=== PATIENT | male | born 1975 | race Caucasian/White ===

== ENCOUNTER 2017-05-26 04:01 | Emergency (ER) | payer BC ==
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
[2017-05-26] MEDS ORDERED: Diphtheria,Pertussis(Acell),Tetanus Vaccine 0.5 ML Syringe IM ONE (05:15)
[2017-05-26] MEDS ORDERED: Sodium Chloride 0.9% 1,000 ML IV SCH ×2 (05:15)
[2017-05-26] MEDS ORDERED: cefTRIAXone 1 GM in Premix Bag 1 BAG IV ONE (05:15)
[2017-05-26 05:51] LABS: CHLORIDE,CL < 52 mmol/L (98-110)
[2017-05-26 06:01] LABS: SODIUM,NA < 100 mmol/L (136-146)
[2017-05-26] MEDS ORDERED: NS + KCl 20mEq/L 1,000 ML IV SCH (06:15)
[2017-05-26 06:53] VITALS: BP 100/79
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
== END 2017-05-26 06:20 | disposition other institution (70) ==
LOC: MW.ED 04:01
DX: S06.321A Contusion and laceration of left cerebrum with loss of consciousness of 30 minutes or less, initial encounter (principal); F10.120 Alcohol abuse with intoxication, uncomplicated; F17.210 Nicotine dependence, cigarettes, uncomplicated; Y04.2XXA Assault by strike against or bumped into by another person, initial encounter
CPT/HCPCS: 70450; 70486; 71010; 72125; 80053; 84132; 84295; 84484; 85025; 85610; 90471; 90715; 93005; 96361; 96365; 99285; G0480; J0696; J7040; 99284

== ENCOUNTER 2017-05-28 11:38 | Emergency (ER) | payer BC ==
--- NOTE | 2017-05-28 12:12 | CT ---
EXAMINATION: Non contrast CT head. Coronal and sagittal reformats. HISTORY: Pain FINDINGS: No evidence of intra or extra axial hemorrhage, mass, midline shift, hydrocephalus or edema. No hypoattenuation changes in the major vascular territories to suggest acute infarct. No abnormal intracranial calcifications are detected. No evidence of substantial vascular calcificat ions. The orbits and globes are symmetric. Paranasal sinuses and mastoid air cells are well aerated without substantial findings. Pituitary fossa appears unremarkable. Calvarium is intact. No evidence of skull fracture. IMPRESSION: No acute intracranial findings.
[2017-05-28 12:17] LABS: CHLORIDE,CL 106 mmol/L (98-110); SODIUM,NA 139 mmol/L (136-146)
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
[2017-05-28 12:49] VITALS: BP 117/77
== END 2017-05-28 12:44 | disposition home or self-care (01) ==
LOC: MW.ED 11:38
DX: F07.81 Postconcussional syndrome (principal); F17.210 Nicotine dependence, cigarettes, uncomplicated; Z91.048 Other nonmedicinal substance allergy status
CPT/HCPCS: 36415; 70450; 70450-26; 80053; 85025; 85610; 99283; 99284-25

== ENCOUNTER 2017-08-25 16:26 | Emergency (ER) | payer BC ==
[2017-08-25] MEDS ORDERED: Lidocaine 1% 20 ML MDV INJECT ONE (16:43)
[2017-08-25] MEDS ORDERED: Bacitracin Oint 1 GM U/D Packet TOP ONE (16:43)
--- NOTE | 2017-08-25 16:50 | EDM.PDOC ---
ED HPI GENERAL MEDICAL PROBLEM - General Chief Complaint: Laceration Stated Complaint: FELL DOWN Time Seen by Provider: 08/25/17 16:33 Source of Information: Reports: Patient History Limitations: Reports: No Limitations - History of Present Illness INITIAL COMMENTS - FREE TEXT/NARRATIVE: HISTORY AND PHYSICAL: History of present illness: Patient is a 41-year-old male who presents to the emergency room with complaints of a laceration above the left eye after falling. States he was using a hoverboard in the kitchen when he lost his balance resulting in a fall, hitting his face on the counter. He has soft tissue swelling, bruising and a laceration to the left face. Denies any LOC or blurred vision. Review of systems: As per history of present illness and below otherwise all systems reviewed and negative. Past medical history: As per history of present illness and as reviewed below otherwise noncontributory. Surgical history: As per history of present illness and as reviewed below otherwise noncontributory. Social history: No reported history of drug or alcohol abuse. Family history: As per history of present illness and as reviewed below otherwise noncontributory. Physical exam: General: Well-developed and well-nourished 41-year-old male. Alert and oriented. Nontoxic appearing and in no acute distress. HEENT: Atraumatic, normocephalic, pupils reactive, negative for conjunctival pallor or scleral icterus, mucous membranes moist, throat clear, neck supple, nontender, trachea midline. Lungs: Clear to auscultation, breath sounds equal bilaterally, chest nontender. Heart: S1S2, regular, negative for clicks, rubs, or JVD. Abdomen: Soft, nondistended, nontender. Negative for masses or hepatosplenomegaly. Negative for costovertebral tenderness. Pelvis: Stable nontender. Genitourinary: Deferred. Rectal: Deferred. Extremities: Atraumatic, negative for cords or calf pain. Neurovascular unremarkable. Skin: Vertical laceration to mid left eyebrow, measuring 3.5 cm - gapping. Superficial laceration noted to the left cheek bone measuring approximately 3 cm Neuro: Awake, alert, oriented. Cranial nerves II through XII unremarkable. Cerebellum unremarkable. Motor and sensory unremarkable throughout. Exam nonfocal. CT shows a laceration associated with some soft tissue swelling and hematoma noted to the left periorbital region. No skull fracture or intracranial disease or bleeding noted. Keflex will be ordered due to the laceration. Patient will return for suture removal in 10 days. Diagnostics: Head and maxillofacial CT Therapeutics: Lidocaine, bacitracin Procedure: Area was cleansed with chlorhexidine. Area was anesthetized with 1% lidocaine. Explored to base in a bloodless field. 4-0 nylon was used, 5 interrupted sutures were placed. Patient tolerated well. Bacitracin dressing. Small laceration on the left cheek bone was cleansed and Dermabond was used and this is superficial. Impression: Head injury Facial laceration Plan: 1. Please have your stitches removed in 10 days. Monitor for signs of infection. Please do not saturate the area under water (pools, hot tubs, etc...) 2. Tylenol and/or ibuprofen for pain and fever management. Ice to the area. 3. Follow-up with your primary caregiver in the next week. Return to the ED as needed and as discussed. Definitive disposition and diagnosis as appropriate pending reevaluation and review of above. Duration: Hour(s): Location: Reports: Face Left Eye Pain Score (Numeric/FACES): 4 - Related Data Allergies Allergy/AdvReac Type Severity Reaction Status Date / Time adhesive tape Allergy Rash Verified 08/25/17 16:46 Home Meds: Home Meds . [No Known Home Meds] 08/25/17 [History] Past Medical History - Past Health History Medical/Surgical History: Denies Medical/Surgical History Gastrointestinal History: Reports: None - Infectious Disease History Infectious Disease History: Reports: None - Past Surgical History GI Surgical History: Reports: Appendectomy Social & Family History - Family History Family Medical History: Noncontributory - Tobacco Use Smoking Status *Q: Current Every Day Smoker Years of Tobacco use: 20 Packs/Tins Daily: 1 - Caffeine Use Caffeine Use: Reports: Coffee - Recreational Drug Use Recreational Drug Use: No ED ROS GENERAL - Review of Systems Review Of Systems: ROS reveals no pertinent complaints other than HPI. ED EXAM, HEAD INJURY - Physical Exam Exam: See Below (See dictation) Course - Vital Signs Last Recorded V/S: Last Vital Signs Temp 98.9 F 08/25/17 16:41 Pulse 102 H 08/25/17 16:41 Resp 16 08/25/17 16:41 BP 138/72 08/25/17 16:41 Pulse Ox 97 08/25/17 16:41 - Orders/Labs/Meds Orders: Active Orders 24 hr Category Date Time Status Head wo Cont [CT] Stat Exams 08/25/17 16:43 Taken Max Facial Sinus wo Cont [CT] Stat Exams 08/25/17 16:43 Taken Meds: Medications Discontinued Medications Generic Name Dose Route Start Last Admin Trade Name Freq PRN Reason Stop Dose Admin Bacitracin 1 dose 08/25/17 16:43 Bacitracin Oint 1 Gm TOP 08/25/17 16:44 ONETIME ONE Lidocaine HCl 20 ml 08/25/17 16:43 Xylocaine 1% INJECT 08/25/17 16:44 ONETIME ONE Octyl Cyanoacrylate 1 applic 08/25/17 17:23 Dermabond Mini TOP 08/25/17 17:24 ONETIME ONE Departure - Departure Time of Disposition: 17:45 Disposition: Home, Self-Care 01 Clinical Impression: Head injury Qualifiers: Encounter type: initial encounter Qualified Code(s): S09.90XA - Unspecified injury of head, initial encounter Facial laceration Qualifiers: Encounter type: initial encounter Qualified Code(s): S01.81XA - Laceration without foreign body of other part of head, initial encounter - Discharge Information Referrals: PCP,None [Primary Care Provider] - Forms: ED Department Discharge Additional Instructions: My general discharge The following information is given to patients seen in the emergency department who are being discharged to home. This information is to outline your options for follow-up care. We provide all patients seen in our emergency department with a follow-up referral. The need for follow-up, as well as the timing and circumstances, are variable depending upon the specifics of your emergency department visit. If you don't have a primary care physician on staff, we will provide you with a referral. We always advise you to contact your personal physician following an emergency department visit to inform them of the circumstance of the visit and for follow-up with them and/or the need for any referrals to a consulting specialist. The emergency department will also refer you to a specialist when appropriate. This referral assures that you have the opportunity for follow-up care with a specialist. All of these measure are taken in an effort to provide you with optimal care, which includes your follow-up. Under all circumstances we always encourage you to contact your private physician who remains a resource for coordinating your care. When calling for follow-up care, please make the office aware that this follow-up is from your recent emergency room visit. If for any reason you are refused follow-up, please contact the [facility] Emergency Department at and asked to speak to the emergency department charge nurse. [facility] Primary Care [address] [place] [id number] 1. Please have your stitches removed in 10 days. Monitor for signs of infection. Please do not saturate the area under water (pools, hot tubs, etc...) 2. Tylenol and/or ibuprofen for pain and fever management. Ice to the area. 3. Follow-up with your primary caregiver in the next week. Return to the ED as needed and as discussed. - My Orders Last 24 Hours: My Active Orders 08/25/17 16:43 Head wo Cont [CT] Stat Max Facial Sinus wo Cont [CT] Stat - Assessment/Plan Last 24 Hours: My Active Orders 08/25/17 16:43 Head wo Cont [CT] Stat Max Facial Sinus wo Cont [CT] Stat
[2017-08-25] MEDS ORDERED: Octyl 2-Cyanoacrylate 1 APPLIC TUBE TOP ONE (17:23)
[2017-08-25 18:05] VITALS: BP 149/74
--- NOTE | 2017-08-26 16:30 | CT ---
EXAM DATE: 08/25/17 PATIENT'S AGE: 41 Patient: JOSE ELIAS AVILA Facility: [place], [place] Site . Site : 1975 Study: CT Head WO CONT [id number]/28/2018 5:09:06 PM Ordering Physician: Doctor Harrison Final Report: INDICATION: Fell last night. Laceration to left elbow and black ox. TECHNIQUE: CT head without IV contrast. CT face without IV contrast include including axial, coronal and sagittal imaging. COMPARISON: CT head 05/28/[address] face 05/26/2017. FINDINGS: Polyp retention cyst in the right maxillary sinus stable. Laceration in the left supraorbital region with associated soft tissue swelling extending from the supraorbital region into the periorbital region and cheek new. New mild amount of hematoma in this region. No skull or facial fractures. No intracranial hemorrhage, edema or mass effect. Small to mildly prominent lymph nodes in the mid and upper neck likely reactive in nature. Minimal fluid and mucosal thickening in the ethmoidal sinuses. Remainder negative. IMPRESSION: 1. Laceration with associated soft tissue swelling and hematoma in the left supraorbital region with extension of soft tissue swelling and hematoma in the left periorbital region and cheek without skull or facial fracture. 2. No acute intracranial disease. 3. Minimal inflammatory changes in the paranasal sinuses. 4. Mild lymph node prominence in the mid upper neck which should be reactive. Please note that all CT scans at this facility use dose modulation, iterative reconstruction, and/or weight-based dosing when appropriate to reduce radiation dose to as low as reasonably achievable. Dictated by Bay Benitez MD @ Aug 25 2017 5:31PM (Electronic Signature) Report Signed by Proxy. MTDD
--- NOTE | 2017-08-26 16:31 | CT ---
EXAM DATE: 08/25/17 PATIENT'S AGE: 41 Patient: JOSE ELIAS AVILA Facility: [place], [place] Site . Site : 1975 Study: CT Facial WO CONT [id number]/28/2018 5:10:13 PM Ordering Physician: Doctor Harrison Final Report: INDICATION: Fell last night. Laceration to left elbow and black ox. TECHNIQUE: CT head without IV contrast. CT face without IV contrast include including axial, coronal and sagittal imaging. COMPARISON: CT head 05/28/[address] face 05/26/2017. FINDINGS: Polyp retention cyst in the right maxillary sinus stable. Laceration in the left supraorbital region with associated soft tissue swelling extending from the supraorbital region into the periorbital region and cheek new. New mild amount of hematoma in this region. No skull or facial fractures. No intracranial hemorrhage, edema or mass effect. Small to mildly prominent lymph nodes in the mid and upper neck likely reactive in nature. Minimal fluid and mucosal thickening in the ethmoidal sinuses. Remainder negative. IMPRESSION: 1. Laceration with associated soft tissue swelling and hematoma in the left supraorbital region with extension of soft tissue swelling and hematoma in the left periorbital region and cheek without skull or facial fracture. 2. No acute intracranial disease. 3. Minimal inflammatory changes in the paranasal sinuses. 4. Mild lymph node prominence in the mid upper neck which should be reactive. Please note that all CT scans at this facility use dose modulation, iterative reconstruction, and/or weight-based dosing when appropriate to reduce radiation dose to as low as reasonably achievable. Dictated by Bay Benitez MD @ Aug 25 2017 5:32PM (Electronic Signature) Report Signed by Proxy. MTDD
== END 2017-08-25 17:55 | disposition home or self-care (01) ==
LOC: MW.ED 16:26
DX: S01.112A Laceration without foreign body of left eyelid and periocular area, initial encounter (principal); S01.412A Laceration without foreign body of left cheek and temporomandibular area, initial encounter; S09.90XA Unspecified injury of head, initial encounter; F17.210 Nicotine dependence, cigarettes, uncomplicated; W01.118A Fall on same level from slipping, tripping and stumbling with subsequent striking against other sharp object, initial encounter
CPT/HCPCS: 12014; 70450; 70486; 99283; A9270

== ENCOUNTER 2019-07-05 14:28 | Emergency (ER) | payer BC ==
--- NOTE | 2019-07-05 14:50 | EDM.PDOC ---
ED HPI GENERAL MEDICAL PROBLEM - General Chief Complaint: Skin Complaint Stated Complaint: HERNIA Time Seen by Provider: 07/05/19 14:34 Source of Information: Reports: Patient History Limitations: Reports: No Limitations - History of Present Illness INITIAL COMMENTS - FREE TEXT/NARRATIVE: HISTORY AND PHYSICAL: History of present illness: Patient is a 43-year-old male who presents to the emergency room with complaints of a painful firm area noted between his scrotum and rectum. He states he is concerned he may have a hernia as he has not had any experiences with this discomfort in the past. Patient denies any fever, chills, headache, change in vision, syncope or near syncope. Denies any chest pain, back pain, shortness of breath or cough. Denies any abdominal pain, nausea, vomiting, diarrhea, constipation or dysuria. Has not noted any blood in urine or stool. Denies any testicular pain, swelling, or penile drainage/lesions. Patient has been eating and drinking appropriately. Review of systems: As per history of present illness and below otherwise all systems reviewed and negative. Past medical history: As per history of present illness and as reviewed below otherwise noncontributory. Surgical history: As per history of present illness and as reviewed below otherwise noncontributory. Social history: See social history for further information Family history: As per history of present illness and as reviewed below otherwise noncontributory. Physical exam: General: Well-developed and well-nourished 43-year-old male. Alert and oriented. Nontoxic appearing and in no acute distress. HEENT: Atraumatic, normocephalic, pupils equal and reactive bilaterally, negative for conjunctival pallor or scleral icterus, mucous membranes moist, trachea midline. No drooling or trismus noted. No meningeal signs. No hot potato voice noted. Lungs: Clear to auscultation, breath sounds equal bilaterally, chest nontender. Heart: S1S2, regular rate and rhythm without overt murmur Abdomen: Soft, nondistended, nontender. Negative for masses or hepatosplenomegaly. Negative for costovertebral tenderness. Pelvis: Stable nontender. Genitourinary: This was done with consent and a floor sander at the bedside. No pain with palpation of the testes. No erythema, soft tissue swelling or inguinal hernias are appreciated. Positive mesenteric reflex. Skin: Small firm palpable area noted to right gluteal fold, near rectum. Non- indurated and nonfluctuant. Remaining skin is intact, warm, dry. No lesions or rashes noted. Extremities: Atraumatic, moves all extremities per self without difficulty or deficits, negative for cords or calf pain. Neurovascular unremarkable. Neuro: Awake, alert, oriented. Cranial nerves II through XII unremarkable. Cerebellum unremarkable. Motor and sensory unremarkable throughout. Exam nonfocal. Notes: A small soft tissue nodular infiltration of the subcutaneous fat is seen along the medial right gluteal fold measuring 1.5 cm. This information was shared with Dr. George, general surgeon on-call, who states that I can put this patient on Flagyl and have him follow up with her need week. This information was shared with the patient and at bedside. Medication, follow-up and supportive care measures were reviewed and discussed. Voices understanding and is agreeable to plan of care. Denies any further questions or concerns at this time. Diagnostics: CBC, CMP, UA, CT abd/pelvis Therapeutics: None Prescription: Flagyl [place] Impression: Flori-rectal inflammation, r/o abscess Plan: 1. Keep the area clean and dry. May want to add colace to regiment and increase your water. 2. DO NOT drink any alcohol while taking the Flagyl, will cause GI upset. 3. Tylenol and/or ibuprofen as needed for pain management. 4. Please call Dr George's office to set up a follow up appointment. Return to the ED as needed and as discussed. Definitive disposition and diagnosis as appropriate pending reevaluation and review of above. Scrotum Pain Score (Numeric/FACES): 6 - Related Data Allergies Allergy/AdvReac Type Severity Reaction Status Date / Time adhesive tape Allergy Rash Verified 07/05/19 14:33 Home Meds: Home Meds Acetaminophen/HYDROcodone [[place] 325-5 MG] 1 dose PO Q4H #20 tablet 07/05/19 [Rx ] Ranitidine HCl [Heartburn Relief 150] 150 mg PO DAILY 07/05/19 [History] metroNIDAZOLE [Flagyl] 500 mg PO Q12H 5 Days #10 tab 07/05/19 [Rx] Past Medical History - Past Health History Medical/Surgical History: Denies Medical/Surgical History Gastrointestinal History: Reports: None - Infectious Disease History Infectious Disease History: Reports: Chicken Pox - Past Surgical History GI Surgical History: Reports: Appendectomy Musculoskeletal Surgical History: Reports: Other (See Below) Other Musculoskeletal Surgeries/Procedures:: right knee surgery Social & Family History - Family History Family Medical History: Noncontributory - Tobacco Use Smoking Status *Q: Current Every Day Smoker Years of Tobacco use: 20 Packs/Tins Daily: 2 - Caffeine Use Caffeine Use: Reports: Coffee Caffeine Use Comment: 1 cup every day - Recreational Drug Use Recreational Drug Use: No ED ROS GENERAL - Review of Systems Review Of Systems: Comprehensive ROS is negative, except as noted in HPI. ED EXAM, SKIN/RASH Exam: See Below (See dictation) Course - Vital Signs Last Recorded V/S: Last Vital Signs Temp 96.7 F 07/05/19 14:34 Pulse 84 07/05/19 14:34 Resp 18 07/05/19 14:34 BP 148/85 H 07/05/19 14:34 Pulse Ox 99 07/05/19 14:34 - Orders/Labs/Meds Labs: Laboratory Tests 07/05/19 07/05/19 07/05/19 Range/Units 14:47 14:47 14:47 WBC 11.34 H (4.0-11.0) K/uL RBC 5.35 (4.50-5.90) M/uL Hgb 17.3 H (13.0-17.0) g/dL Hct 49.8 (38.0-50.0) % MCV 93.1 (80.0-98.0) fL MCH 32.3 H (27.0-32.0) pg MCHC 34.7 (31.0-37.0) g/dL RDW Std Deviation 45.4 (28.0-62.0) fl RDW Coeff of Zhou 13 (11.0-15.0) % Plt Count 221 (150-400) K/uL MPV 11.40 (7.40-12.00) fL Neut % (Auto) 60.6 (48.0-80.0) % Lymph % (Auto) 29.1 (16.0-40.0) % Gila % (Auto) 8.0 (0.0-15.0) % Eos % (Auto) 1.9 (0.0-7.0) % Baso % (Auto) 0.4 (0.0-1.5) % Neut # (Auto) 6.9 H (1.4-5.7) K/uL Lymph # (Auto) 3.3 H (0.6-2.4) K/uL Gila # (Auto) 0.9 H (0.0-0.8) K/uL Eos # (Auto) 0.2 (0.0-0.7) K/uL Baso # (Auto) 0.1 (0.0-0.1) K/uL Nucleated RBC % 0.0 /100WBC Nucleated RBCs # 0 K/uL Sodium 142 (136-148) mmol/L Potassium 4.3 (3.5-5.1) mmol/L Chloride 105 (98-107) mmol/L Carbon Dioxide 29.2 (21.0-32.0) mmol/L BUN 14 (7.0-18.0) mg/dL Creatinine 1.0 (0.8-1.3) mg/dL Est Cr Clr Drug Dosing 98.35 mL/min Estimated GFR (MDRD) > 60.0 ml/min Glucose 87 (74-106) mg/dL Calcium 8.7 (8.5-10.1) mg/dL Total Bilirubin 0.4 (0.2-1.0) mg/dL AST 25 (15-37) IU/L ALT 40 (14-63) IU/L Alkaline Phosphatase 107 (46-116) U/L Total Protein 7.4 (6.4-8.2) g/dL Albumin 3.9 (3.4-5.0) g/dL Globulin 3.5 (2.6-4.0) g/dL Albumin/Globulin Ratio 1.1 (0.9-1.6) Urine Color YELLOW Urine Appearance CLEAR Urine pH 7.0 (5.0-8.0) Ur Specific [place] 1.020 (1.001-1.035) Urine Protein NEGATIVE (NEGATIVE) mg/dL Urine Glucose (UA) NEGATIVE (NEGATIVE) mg/dL Urine Ketones NEGATIVE (NEGATIVE) mg/dL Urine Occult Blood NEGATIVE (NEGATIVE) Urine Nitrite NEGATIVE (NEGATIVE) Urine Bilirubin NEGATIVE (NEGATIVE) Urine Urobilinogen 0.2 (<2.0) EU/dL Ur Leukocyte Esterase NEGATIVE (NEGATIVE) Meds: Medications Discontinued Medications Generic Name Dose Route Start Last Admin Trade Name Freq PRN Reason Stop Dose Admin Iopamidol 100 ml 07/05/19 15:50 07/05/19 15:50 Isovue-370 (76%) IVPUSH 07/05/19 15:51 100 ml ONETIME STA Administration Departure - Departure Time of Disposition: 16:19 Disposition: Home, Self-Care 01 Clinical Impression: Perirectal inflammation - Discharge Information Prescriptions: Acetaminophen/HYDROcodone [[place] 325-5 MG] 1 dose PO Q4H #20 tablet metroNIDAZOLE [Flagyl] 500 mg PO Q12H 5 Days #10 tab Instructions: Perirectal Abscess Referrals: PCP,None [Primary Care Provider] - Forms: ED Department Discharge Additional Instructions: The following information is given to patients seen in the emergency department who are being discharged to home. This information is to outline your options for follow-up care. We provide all patients seen in our emergency department with a follow-up referral. The need for follow-up, as well as the timing and circumstances, are variable depending upon the specifics of your emergency department visit. If you don't have a primary care physician on staff, we will provide you with a referral. We always advise you to contact your personal physician following an emergency department visit to inform them of the circumstance of the visit and for follow-up with them and/or the need for any referrals to a consulting specialist. The emergency department will also refer you to a specialist when appropriate. This referral assures that you have the opportunity for follow-up care with a specialist. All of these measure are taken in an effort to provide you with optimal care, which includes your follow-up. Under all circumstances we always encourage you to contact your private physician who remains a resource for coordinating your care. When calling for follow-up care, please make the office aware that this follow-up is from your recent emergency room visit. If for any reason you are refused follow-up, please contact the [facility] Emergency Department at and asked to speak to the emergency department charge nurse. [facility] Primary Care: General Surgery [address] [place] [address] [id number] 1. Keep the area clean and dry. May want to add colace to regiment and increase your water. 2. DO NOT drink any alcohol while taking the Flagyl, will cause GI upset. 3. Tylenol and/or ibuprofen as needed for pain management. 4. Please call Dr George's office to set up a follow up appointment. Return to the ED as needed and as discussed.
[2019-07-05 15:17] LABS: BLOOD UREA NITROGEN,BUN 14 mg/dL (7.0-18.0); CARBON DIOXIDE,CO2 29.2 mmol/L (21.0-32.0); CHLORIDE,CL 105 mmol/L (98-107); GLUCOSE RANDOM 87 mg/dL (74-106); POTASSIUM,K 4.3 mmol/L (3.5-5.1); SODIUM,NA 142 mmol/L (136-148)
[2019-07-05] MEDS ORDERED: Iopamidol 755 Mg/ML 100 ML Bottle IVPUSH STA (15:50)
--- NOTE | 2019-07-05 16:09 | CT ---
INDICATION: Pelvic pain for 2 days TECHNIQUE: CT pelvis with i.v. contrast. Coronal and sagittal reformats were obtained. CONTRAST: 100 mL Isovue 370 COMPARISON: None FINDINGS: Bone: No acute fractures or aggressive bone lesions are identified. 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 Joint: The hip joint is unremarkable. No significant hip effusion is seen. The visualized sacroiliac joints are unremarkable in appearance. The pubic symphysis is normal in appearance. Soft tissue: A small soft tissue nodular infiltration of the subcutaneous fat is seen along the medial right gluteal fold measuring 1.5 cm. The appendix and visualized bowel are unremarkable in appearance. IMPRESSION: 1. A small soft tissue nodular infiltration of the subcutaneous fat is seen along the medial right gluteal fold measuring 1.5 cm. This may represent a small focus of inflammation. No definite involvement of the issue and fossa seen. Dictated by Ish Woodruff MD @ 07/05/2019 4:04:02 PM Please note that all CT scans at this facility use dose modulation, iterative reconstruction, and/or weight-based dosing when appropriate to reduce radiation dose to as low as reasonably achievable. Dictated by: Ish Woodruff MD @ 07/05/2019 16:08:47 (Electronically Signed)
[2019-07-05 16:29] VITALS: BP 133/87; PULSE 81
== END 2019-07-05 16:25 | disposition home or self-care (01) ==
LOC: MW.ED 14:28
DX: K62.89 Other specified diseases of anus and rectum (principal); F17.210 Nicotine dependence, cigarettes, uncomplicated; Z79.899 Other long term (current) drug therapy; Z91.09 Other allergy status, other than to drugs and biological substances
CPT/HCPCS: 72193; 80053; 81003; 85025; 99284; Q9967

== ENCOUNTER 2019-07-13 10:56 | Day surgery (SDC) | payer BC ==
[~2019-07-13 10:56] MED LIST: Lactated Ringers 1,000 ML IV SCH; Sodium Chloride 0.9% 10 ML SDV IV PRN; Sodium Chloride 0.9% 10 ML Syringe FLUSH PRN; Sodium Chloride 0.9% 2.5 ML Syringe FLUSH PRN; cefOXitin 2 GM in Premix Bag 1 BAG IV ONE
--- NOTE | 2019-07-13 11:48 | PCM.PREANE ---
Preanesthetic Assessment - Anesthesia/Transfusion/Family Hx Anesthesia History: Prior Anesthesia Without Reaction Family History of Anesthesia Reaction: No Transfusion History: No Prior Transfusion(s) Intubation History: Unknown - Review of Systems General: No Symptoms Pulmonary: No Symptoms Cardiovascular: No Symptoms Gastrointestinal: No Symptoms Neurological: No Symptoms Other: Reports: None - Physical Assessment Vital Signs: Last Vital Signs Temp 36.5 C 07/13/19 11:41 Pulse 72 07/13/19 11:41 Resp 14 07/13/19 11:41 BP 113/66 07/13/19 11:41 Pulse Ox 99 07/13/19 11:41 Height: 5 ft 10 in Weight: 97.069 kg ASA Class: 2 Mental Status: Alert & Oriented x3 Airway Class: Mallampati = 2 Dentition: Reports: Normal Dentition (front upper incisor chipped) Thyro-Mental Finger Breadths: 3 Mouth Opening Finger Breadths: 3 ROM/Head Extension: Limited/Partial Lungs: Clear to Auscultation, Normal Respiratory Effort Cardiovascular: Regular Rate, Regular Rhythm - Allergies Allergies/Adverse Reactions: Allergies Allergy/AdvReac Type Severity Reaction Status Date / Time adhesive tape Allergy Rash Verified 07/10/19 09:58 - Blood Blood Available: No - Anesthesia Plan Pre-Op Medication Ordered: None - Acknowledgements Anesthesia Type Planned: General Anesthesia Pt an Appropriate Candidate for the Planned Anesthesia: Yes Alternatives and Risks of Anesthesia Discussed w Pt/Guardian: Yes Pt/Guardian Understands and Agrees with Anesthesia Plan: Yes PreAnesthesia Questionnaire - Past Health History Medical/Surgical History: Denies Medical/Surgical History HEENT History: Reports: None Gastrointestinal History: Reports: GERD, Other (See Below) (perirectal abscess) Musculoskeletal History: Reports: Back Pain, Chronic Endocrine/Metabolic History: Reports: Obesity/BMI 30+ - Infectious Disease History Infectious Disease History: Reports: Chicken Pox - Past Surgical History Head Surgeries/Procedures: Reports: None HEENT Surgical History: Reports: Tonsillectomy GI Surgical History: Reports: Appendectomy Musculoskeletal Surgical History: Reports: Arthroscopic Knee Other Musculoskeletal Surgeries/Procedures:: hx of right ACL repair - SUBSTANCE USE Smoking Status *Q: Current Every Day Smoker (2ppd) Tobacco Use Within Last Twelve Months: Cigarettes Recreational Drug Type: Reports: Other (see below) (h/o i.v. drug abuse- in remission) - HOME MEDS Home Medications: Home Meds Acetaminophen/HYDROcodone [[place] 325-5 MG] 1 dose PO Q4H #20 tablet 07/05/19 [Rx ] Ranitidine HCl [Heartburn Relief 150] 150 mg PO DAILY 07/05/19 [History] metroNIDAZOLE [Flagyl] 500 mg PO Q12H 5 Days #10 tab 07/05/19 [Rx] - CURRENT (IN HOUSE) MEDS Current Meds: Current Medications Lactated Ringer's (Ringers, Lactated) 1,000 mls @ 125 mls/hr IV ASDIRECTED GLADYS Sodium Chloride (Saline Flush) 10 ml FLUSH ASDIRECTED PRN PRN Reason: Keep Vein Open Sodium Chloride (Saline Flush) 2.5 ml FLUSH ASDIRECTED PRN PRN Reason: Keep Vein Open Sodium Chloride (Normal Saline) 10 ml IV ASDIRECTED PRN PRN Reason: IV Use Discontinued Medications Cefoxitin Sodium 2 gm/ Premix 50 mls @ 100 mls/hr IV ONETIME ONE Stop: 07/13/19 09:51
[2019-07-13] MEDS ORDERED: Propofol 200 MG/20 ML SDV ONE (12:23)
[2019-07-13] MEDS ORDERED: Midazolam 1 MG/ML 2 ML SDV ONE (12:24)
[2019-07-13] MEDS ORDERED: fentaNYL 250 MCG/5 ML SDV ONE (12:24)
[2019-07-13] MEDS ORDERED: Rocuronium 100 MG/10 ML Syringe ONE (12:26)
[2019-07-13] MEDS ORDERED: Ondansetron 4 MG/2 ML SDV ONE (12:27)
[2019-07-13] MEDS ORDERED: Dexamethasone 4 MG/ML 5 ML MDV ONE (12:27)
[2019-07-13] MEDS ORDERED: Sodium Chloride 0.9% 20 ML ONE (12:28)
[2019-07-13] MEDS ORDERED: cefOXitin 1 GM Vial ONE (12:28)
[2019-07-13] MEDS ORDERED: Bupivacaine 0.5% 30 ML SDV ONE (12:31)
[2019-07-13] MEDS ORDERED: Phenylephrine/Normal Saline 100 MCG/ML 10 ML Syringe ONE (13:06)
[2019-07-13] MEDS ORDERED: ePHEDrine 50 MG/ML SDV ONE (13:06)
[2019-07-13] MEDS ORDERED: Glycopyrrolate 0.2 MG/ML SDV ONE (13:10)
[2019-07-13] MEDS ORDERED: HYDROmorphone 2 MG/ML Syringe ONE (13:17)
--- NOTE | 2019-07-13 13:37 | PCM.OPNOTE ---
- General Post-Op/Procedure Note Date of Surgery/Procedure: 07/13/19 Operative Procedure(s): Incision and drainage of perianal abscess Findings: 1 x 1 x 1 cm anterior perianal abscess Pre Op Diagnosis: Perianal abscess Post-Op Diagnosis: same Anesthesia Technique: General LMA Primary Surgeon: Jael George Fluid Replacement, Intraop: 800 EBL in mLs: 2 Condition: Good
--- NOTE | 2019-07-13 14:00 | PCM.POSTAN ---
POST ANESTHESIA ASSESSMENT - MENTAL STATUS Mental Status: Alert, Oriented - VITAL SIGNS Vital Signs: Last Vital Signs Temp 36.1 C 07/13/19 13:35 Pulse 100 07/13/19 13:54 Resp 13 07/13/19 13:54 BP 123/72 07/13/19 13:54 Pulse Ox 95 07/13/19 13:54 - RESPIRATORY Respiratory Status: Respiratory Rate WNL, Airway Patent, O2 Saturation Stable - CARDIOVASCULAR CV Status: Pulse Rate WNL, Blood Pressure Stable - GASTROINTESTINAL GI Status: No Symptoms - PAIN Pain Score: 0 - POST OP HYDRATION Hydration Status: Adequate & Stable - OBSERVATIONS Free Text/Narrative:: no anesthesia problems
--- NOTE | 2019-07-13 14:24 | PCM48HPAN ---
Post Anesthesia Note - EVALUATION WITHIN 48HRS OF ANESTHETIC Vital Signs in Normal Range: Yes Patient Participated in Evaluation: Yes Respiratory Function Stable: Yes Airway Patent: Yes Cardiovascular Function Stable: Yes Hydration Status Stable: Yes Pain Control Satisfactory: Yes Nausea and Vomiting Control Satisfactory: Yes Mental Status Recovered: Yes Vital Signs: Last Vital Signs Temp 36.1 C 07/13/19 13:35 Pulse 91 07/13/19 13:59 Resp 14 07/13/19 13:59 BP 119/72 07/13/19 13:59 Pulse Ox 95 07/13/19 13:59 - COMMENTS/OBSERVATIONS Free Text/Narrative:: No anesthesia problems
[2019-07-13 14:53] VITALS: BP 128/72; PULSE 78
--- NOTE | 2019-07-13 14:55 | OR ---
SURGEON: CARLIE BRICEÑO MD DATE OF PROCEDURE: 07/13/2019 PREOPERATIVE DIAGNOSIS: Perianal abscess. POSTOPERATIVE DIAGNOSIS: Perianal abscess. PROCEDURES PERFORMED: Exam under anesthesia, incision and drainage of perianal abscess. ANESTHESIA: General LMA. FLUIDS: 800 mL of crystalloid. ESTIMATED BLOOD LOSS: 2 mL. FINDINGS: 1 x 1 x 1 cm right anterior perianal abscess. No connection to the anal canal. COMPLICATIONS: None. INDICATIONS: The patient is a 43-year-old male who presents with perianal pain and swelling. He was seen in the emergency room and started on antibiotics. The erythema and swelling improved. However, the patient was left with a fluctuant area on the right anterior anoderm. I explained the need for drainage of this and an exam under anesthesia to ensure that this was not a perianal fistula. The patient and I discussed the procedure, expected perioperative course, and risks including bleeding, infection, or damage to surrounding structures. He verbalized understanding and wishes to proceed. PROCEDURE IN DETAIL: The patient was brought into the OR and placed on the OR cart in supine position. A time-out was completed verifying the patient's name, age, date of , allergies, and procedure to be performed. General LMA anesthesia was induced. The patient was then turned into a left lateral decubitus position, taking care to appropriately pad and secure the patient. The buttocks and anoderm were then prepped and draped in the usual standard fashion. I started the case by performing a digital rectal exam. This exam was within normal limits. I then turned my attention to the anterior anoderm. Again, I noted a small fluctuant area located anteriorly into the right side. The area overlying this was anesthetized with 0.5% Marcaine plain. A 15 blade was then used to make a 1-cm cruciate incision over the area of maximum fluctuance. No significant drainage was noted. I used a hemostat and found an abscess cavity underneath this area. It was 1 cm in depth below my incision area. Using a fistula probe, I explored the wound and could not see any connection to the anal canal. A bivalve proctoscope was inserted in the rectum, and I inspected the anal canal area. This all appeared normal. Hydrogen peroxide solution was injected into the abscess cavity, and I saw no expression of hydrogen peroxide into the anal canal anteriorly. This confirmed for me that the abscess did not form a perianal fistula. The bivalve proctoscope was removed. I excised the edges of my cruciate incision using cautery. I measured the final wound. It measured 1 x 1 x 1 cm in size. It was irrigated with normal saline until it ran clear. The wound was then packed with quarter-inch packing strip. 4x4 fluffs were placed over the top, and these were secured in place with mesh underwear. The patient was then rolled into a supine position and woken. The LMA device was removed, and he was taken to the PACU in stable condition. All counts were complete and correct at the end of the case. HERIBERTO / NAKUL /[id number]
== END 2019-07-13 14:47 | disposition home or self-care (01) ==
LOC: MW.SDS 10:56
PROVIDERS: ATTEND Surgery
DX: K61.0 Anal abscess (principal); F17.210 Nicotine dependence, cigarettes, uncomplicated; Z88.8 Allergy status to other drugs, medicaments and biological substances; Z79.891 Long term (current) use of opiate analgesic; Z91.048 Other nonmedicinal substance allergy status
CPT/HCPCS: 46050; J0330; J0694; J1100; J2001; J2250; J2370; J2405; J2704; J3010; J3490; J7120; 00902; J1170

== ENCOUNTER 2019-12-04 16:23 | Emergency (ER) | payer BC ==
--- NOTE | 2019-12-04 16:45 | EDM.PDOC ---
ED HPI GENERAL MEDICAL PROBLEM - General Chief Complaint: Skin Complaint Stated Complaint: HEALTH ISSUES Time Seen by Provider: 12/04/19 16:45 Source of Information: Reports: Patient History Limitations: Reports: No Limitations - History of Present Illness INITIAL COMMENTS - FREE TEXT/NARRATIVE: HISTORY AND PHYSICAL: History of present illness: Patient is a 44-year-old male presents to the ED with complaint of abscess. Patient reports a history of an abscess in his left gluteal area requiring surgical drainage approximately 6 months ago. He states he notice a small spot on the right glute near his anus about 1 week ago. He states it has gotten worse with over the past week. He saw Dr. Martínez in the clinic today and started on cipro. Patient states Dr. George's office then called him this afternoon and advised him to go to the ED to have it checked out. Review of systems: As per history of present illness and below otherwise all systems reviewed and negative. Past medical history: As per history of present illness and as reviewed below otherwise noncontributory. Surgical history: As per history of present illness and as reviewed below otherwise noncontributory. Social history: No reported history of drug or alcohol abuse. Family history: As per history of present illness and as reviewed below otherwise noncontributory. Physical exam: General: Patient sitting comfortably in no acute distress and nontoxic appearing HEENT: Atraumatic, normocephalic, pupils reactive, negative for conjunctival pallor or scleral icterus, mucous membranes moist, throat clear, neck supple, nontender, trachea midline. No meningeal signs. Lungs: Clear to auscultation, breath sounds equal bilaterally, chest nontender. Heart: S1S2, regular, negative for clicks, rubs, or overt murmur. Abdomen: Soft, nondistended, nontender. Negative for masses or hepatosplenomegaly. Negative for costovertebral tenderness. No rigidity, rebound , guarding. Pelvis: Stable nontender. Genitourinary: Deferred. Rectal: There is a 2cm abscess just adjacent to the rectum on the right side. Patient has pain with digital rectal exam on the adjacent rectal wall. Extremities: Atraumatic, negative for cords or calf pain. Neurovascular unremarkable. Neuro: Awake, alert, oriented. Cranial nerves II through XII unremarkable. Cerebellum unremarkable. Motor and sensory unremarkable throughout. Exam nonfocal. Notes: Dr. Sutton in ED evaluating another patient. I did ask him to take a look at the patient. He does not believe drainage is necessary at this time and patient is requesting to wait until he sees Dr. George for evaluation and possible drainage on Saturday. Diagnostics: none Therapeutics: none Prescriptions: Ultram Impression: Perianal abscess Plan: Continue antibiotic as prescribed You may take ultram as needed for severe pain Follow up with Dr. George on Saturday Return to ED as needed as discussed Definitive disposition and diagnosis as appropriate pending reevaluation and review of above. right inner gluteal Pain Score (Numeric/FACES): 6 - Related Data Allergies Allergy/AdvReac Type Severity Reaction Status Date / Time adhesive tape Allergy Rash Verified 12/04/19 16:42 Home Meds: Home Meds Ciprofloxacin [Ciprofloxacin HCl] 500 mg PO BID 12/04/19 [History] traMADol [Ultram] 50 mg PO Q6H PRN #15 tab 12/04/19 [Rx] Past Medical History - Past Health History Medical/Surgical History: Denies Medical/Surgical History HEENT History: Reports: None Gastrointestinal History: Reports: GERD, Other (See Below) (perirectal abscess) Musculoskeletal History: Reports: Back Pain, Chronic Endocrine/Metabolic History: Reports: Obesity/BMI 30+ - Infectious Disease History Infectious Disease History: Reports: Chicken Pox - Past Surgical History Head Surgeries/Procedures: Reports: None HEENT Surgical History: Reports: Tonsillectomy GI Surgical History: Reports: Appendectomy Musculoskeletal Surgical History: Reports: Arthroscopic Knee Other Musculoskeletal Surgeries/Procedures:: hx of right ACL repair Social & Family History - Family History Family Medical History: Noncontributory - Caffeine Use Caffeine Use: Reports: Coffee Caffeine Use Comment: 1 cup every day ED ROS GENERAL - Review of Systems Review Of Systems: Comprehensive ROS is negative, except as noted in HPI. ED EXAM, SKIN/RASH Exam: See Below (see dictation) Course - Vital Signs Last Recorded V/S: Last Vital Signs Temp 97 F 12/04/19 16:40 Pulse 88 12/04/19 16:40 Resp 18 12/04/19 16:40 BP 127/90 12/04/19 16:40 Pulse Ox 98 12/04/19 16:40 Departure - Departure Time of Disposition: 17:49 Disposition: Home, Self-Care 01 Condition: Good Clinical Impression: Perianal abscess - Discharge Information Prescriptions: traMADol [Ultram] 50 mg PO Q6H PRN #15 tab PRN Reason: Pain (Severe 7-10) Instructions: Skin Abscess, [id number] Referrals: PCP,None [Primary Care Provider] - Forms: ED Department Discharge Additional Instructions: The following information is given to patients seen in the emergency department who are being discharged to home. This information is to outline your options for follow-up care. We provide all patients seen in our emergency department with a follow-up referral. The need for follow-up, as well as the timing and circumstances, are variable depending upon the specifics of your emergency department visit. If you don't have a primary care physician on staff, we will provide you with a referral. We always advise you to contact your personal physician following an emergency department visit to inform them of the circumstance of the visit and for follow-up with them and/or the need for any referrals to a consulting specialist. The emergency department will also refer you to a specialist when appropriate. This referral assures that you have the opportunity for follow-up care with a specialist. All of these measure are taken in an effort to provide you with optimal care, which includes your follow-up. Under all circumstances we always encourage you to contact your private physician who remains a resource for coordinating your care. When calling for follow-up care, please make the office aware that this follow-up is from your recent emergency room visit. If for any reason you are refused follow-up, please contact the [facility] Emergency Department at and asked to speak to the emergency department charge nurse. [facility] [address] [place] [address] [id number] [address] [address] Continue antibiotic as prescribed You may take ultram as needed for severe pain Follow up with Dr. George on Saturday Return to ED as needed as discussed Sepsis Event Note - Focused Exam Vital Signs: Vital Signs Temp Pulse Resp BP Pulse Ox 12/04/19 16:40 97 F 88 18 127/90 98 Date Exam was Performed: 12/04/19 Time Exam was Performed: 17:58
[2019-12-04 16:46] VITALS: BP 127/90; PULSE 88
--- NOTE | 2019-12-04 18:00 | PCM.SN.2 ---
- Free Text/Narrative Note: pt seen, chart reviewed; early stage of perirectal abscess, continue po abx, switch to ultram, keep appointment with Dr. cassidy on coming Saturday; [id number]
--- NOTE | 2019-12-05 11:29 | CONS ---
DATE OF CONSULTATION: 12/04/2019 DATE OF : 1975 PRIMARY CARE PHYSICIAN: None PCP REASON FOR CONSULTATION: Consult from Ms. Lynn Stubbs. Consulting question is perirectal abscess. HISTORY OF PRESENT ILLNESS: The patient is a 44-year-old gentleman and has a history of a perirectal abscess, drained by Dr. Geroge about 5 months ago, and now the patient has the same feeling that a similar thing is happening on the opposite side. Currently, the patient denied fever, chills, or diarrhea. Denied drainage. The patient is worried that there is another recurrence on a different area. PAST MEDICAL HISTORY: Significant for no diabetes, PR, CVA, hypertension. PAST SURGICAL HISTORY: As alluded to have perirectal abscess drainage. ALLERGIES: Please refer to nursing for details. MEDICATION: Please refer to nursing for details. FAMILY HISTORY: Noncontributory. SOCIAL HISTORY: Denies alcohol drinking. PHYSICAL EXAMINATION: GENERAL: A very pleasant gentleman, pacing in the room and sitting comfortably in the stretcher, in no acute distress. HEENT: Normocephalic and atraumatic. Sclerae anicteric. LUNGS: Clear to auscultation. HEART: Regular rate and rhythm. ABDOMEN: Soft, nondistended. No pulsating tender midline abdominal structure. No surgical scar. RECTAL: On perineum inspection, did not do a perirectal examination. Well- healed surgical scar is on the right perineum, the right buttock on the medial aspect, about 3 cm from the anal opening. A very minimal fluctuance, but tender to palpation is right on the medial aspect of the left buttock. It is about 4 cm from the anal opening. No erythema. No cellulitis. No drainage. Skin is completely intact, and the fluctuance is only minimal. IMPRESSION: May be another perirectal abscess happening. Discussed with the patient it can be drained at the bedside, but the patient is more interested to keep his appointment to see Dr. George 2 days later. This patient preferred to have a change of the pain medication. He thought the pain medication made him throw up. So at this time of situation, I think even though there is a perirectal abscess, it is not ripe. Agree with treating with antibiotic, pain medication, and keep the same appointment with Dr. George. Sometimes antibiotic may be able to take care of the situation. The patient will prefer to have nothing done and keep his appointment. We will give the patient Ultram, which is slightly different than the hydrocodone that is making his stomach sick, and continue his Cipro and keep his appointment with Dr. George. MAKENZIE / NAKUL /[id number]
== END 2019-12-04 18:00 | disposition home or self-care (01) ==
LOC: MW.ED 16:23
DX: K61.0 Anal abscess (principal); E66.9 Obesity, unspecified; Z68.29 Body mass index [BMI] 29.0-29.9, adult; Z91.048 Other nonmedicinal substance allergy status
CPT/HCPCS: 99282; 99283

== ENCOUNTER 2020-11-07 06:15 | Emergency (ER) | payer BC ==
--- NOTE | 2020-11-07 07:27 | EDM.PDOC ---
ED HPI GENERAL MEDICAL PROBLEM - General Chief Complaint: Genitourinary Problem Stated Complaint: POSSIBLE KIDNEY Time Seen by Provider: 11/07/20 07:13 Source of Information: Reports: Patient History Limitations: Reports: No Limitations - History of Present Illness INITIAL COMMENTS - FREE TEXT/NARRATIVE: Pt is a 45-year-old male who presents today for left-sided flank pain. Patient states the pain started about 2 weeks ago and wax and wane and was not associated with any events. Patient dolomite been a pulled muscle and try to stretch out a little bit without success. Patient's pain is still present today about a 4 out of 10. Pain does not radiate. Patient concerned he could have UTI or any kidney injury. Patient had a nausea vomiting bloody urine for the symptoms. L flank Pain Score (Numeric/FACES): 6 - Related Data Allergies Allergy/AdvReac Type Severity Reaction Status Date / Time adhesive tape Allergy Rash Verified 11/07/20 06:28 Home Meds: Home Meds Ciprofloxacin [Ciprofloxacin HCl] 500 mg PO BID 12/04/19 [History] traMADol [Ultram] 50 mg PO Q6H PRN #15 tab 12/04/19 [Rx] Past Medical History - Past Health History Medical/Surgical History: Denies Medical/Surgical History HEENT History: Reports: None Cardiovascular History: Reports: None Respiratory History: Reports: None Gastrointestinal History: Reports: GERD, Other (See Below) Genitourinary History: Reports: None Musculoskeletal History: Reports: Back Pain, Chronic Neurological History: Reports: None Psychiatric History: Reports: None Endocrine/Metabolic History: Reports: Obesity/BMI 30+ Insulin Pump Model and Chemical Cell Changer: None Hematologic History: Reports: None Immunologic History: Reports: None Oncologic (Cancer) History: Reports: None Dermatologic History: Reports: None - Infectious Disease History Infectious Disease History: Reports: Chicken Pox - Past Surgical History Head Surgeries/Procedures: Reports: None HEENT Surgical History: Reports: Tonsillectomy GI Surgical History: Reports: Appendectomy Musculoskeletal Surgical History: Reports: Arthroscopic Knee Other Musculoskeletal Surgeries/Procedures:: hx of right ACL repair Social & Family History - Family History Family Medical History: No Pertinent Family History - Caffeine Use Caffeine Use: Reports: Coffee Caffeine Use Comment: 1 cup every day - Recreational Drug Use Recreational Drug Use: No ED ROS GENERAL - Review of Systems Review Of Systems: See Below Constitutional: Reports: No Symptoms HEENT: Reports: No Symptoms Respiratory: Reports: No Symptoms Cardiovascular: Reports: No Symptoms Endocrine: Reports: No Symptoms GI/Abdominal: Reports: No Symptoms : Reports: No Symptoms Musculoskeletal: Reports: Back Pain Skin: Reports: No Symptoms Neurological: Reports: No Symptoms Psychiatric: Reports: No Symptoms Hematologic/Lymphatic: Reports: No Symptoms Immunologic: Reports: No Symptoms ED EXAM,LOWER BACK PAIN/INJURY - Physical Exam Exam: See Below Exam Limited By: No Limitations General Appearance: Alert, WD/WN, No Apparent Distress Eye Exam: Bilateral Eye: EOMI, PERRL Respiratory/Chest: No Respiratory Distress, Lungs Clear, Normal Breath Sounds Cardiovascular: Normal Peripheral Pulses, Regular Rate, Rhythm GI/Abdominal: Normal Bowel Sounds, Soft, Non-Tender Extremities: Normal Range of Motion Neurological: Alert, Normal Mood/Affect, CN II-XII Intact, Oriented x 3 Course - Vital Signs Last Recorded V/S: Last Vital Signs Temp 98.1 F 11/07/20 06:29 Pulse 70 11/07/20 06:29 Resp 18 11/07/20 06:29 BP 128/80 11/07/20 06:29 Pulse Ox 97 11/07/20 06:29 - Orders/Labs/Meds Labs: Laboratory Tests 11/07/20 11/07/20 11/07/20 Range/Units 06:16 07:29 07:29 WBC 8.11 (4.0-11.0) K/uL RBC 5.26 (4.50-5.90) M/uL Hgb 16.5 (13.0-17.0) g/dL Hct 48.4 (38.0-50.0) % MCV 92.0 (80.0-98.0) fL MCH 31.4 (27.0-32.0) pg MCHC 34.1 (31.0-37.0) g/dL RDW Std Deviation 43.9 (28.0-62.0) fl RDW Coeff of Zhou 13 (11.0-15.0) % Plt Count 210 (150-400) K/uL MPV 11.20 (7.40-12.00) fL Neut % (Auto) 57.0 (48.0-80.0) % Lymph % (Auto) 32.8 (16.0-40.0) % [place] % (Auto) 8.0 (0.0-15.0) % Eos % (Auto) 2.0 (0.0-7.0) % Baso % (Auto) 0.2 (0.0-1.5) % Neut # (Auto) 4.6 (1.4-5.7) K/uL Lymph # (Auto) 2.7 H (0.6-2.4) K/uL [place] # (Auto) 0.7 (0.0-0.8) K/uL Eos # (Auto) 0.2 (0.0-0.7) K/uL Baso # (Auto) 0.0 (0.0-0.1) K/uL Nucleated RBC % 0.0 /100WBC Nucleated RBCs # 0 K/uL Sodium 140 (136-148) mmol/L Potassium 4.4 (3.5-5.1) mmol/L Chloride 105 (98-107) mmol/L Carbon Dioxide 27.8 (21.0-32.0) mmol/L BUN 14 (7.0-18.0) mg/dL Creatinine 1.0 (0.8-1.3) mg/dL Est Cr Clr Drug Dosing 90.25 mL/min Estimated GFR (MDRD) > 60.0 ml/min Glucose 108 H (74-106) mg/dL Calcium 8.7 (8.5-10.1) mg/dL Total Bilirubin 0.3 (0.2-1.0) mg/dL AST 13 L (15-37) IU/L ALT 28 (14-63) IU/L Alkaline Phosphatase 97 (46-116) U/L Total Protein 6.9 (6.4-8.2) g/dL Albumin 3.6 (3.4-5.0) g/dL Globulin 3.3 (2.6-4.0) g/dL Albumin/Globulin Ratio 1.1 (0.9-1.6) Urine Color YELLOW Urine Appearance CLEAR Urine pH 6.0 (5.0-8.0) Ur Specific Ronda 1.025 (1.001-1.035) Urine Protein NEGATIVE (NEGATIVE) mg/dL Urine Glucose (UA) NEGATIVE (NEGATIVE) mg/dL Urine Ketones NEGATIVE (NEGATIVE) mg/dL Urine Occult Blood NEGATIVE (NEGATIVE) Urine Nitrite NEGATIVE (NEGATIVE) Urine Bilirubin NEGATIVE (NEGATIVE) Urine Urobilinogen 0.2 (<2.0) EU/dL Ur Leukocyte Esterase NEGATIVE (NEGATIVE) - Re-Assessments/Exams Free Text/Narrative Re-Assessment/Exam: 11/07/20 09:[address] scan reviewed labs reviewed patient stable discharge home. Departure - Departure Time of Disposition: 09:12 Disposition: Home, Self-Care 01 Condition: Good Clinical Impression: Flank pain - Discharge Information *PRESCRIPTION DRUG MONITORING PROGRAM REVIEWED*: Not Applicable *COPY OF PRESCRIPTION DRUG MONITORING REPORT IN PATIENT FANY: Not Applicable Instructions: Flank Pain, Adult, [id number] Referrals: PCP,None [Primary Care Provider] - Forms: ED Department Discharge Additional Instructions: The following information is given to patients seen in the emergency department who are being discharged to home. This information is to outline your options for follow-up care. We provide all patients seen in our emergency department with a follow-up referral. The need for follow-up, as well as the timing and circumstances, are variable depending upon the specifics of your emergency department visit. If you don't have a primary care physician on staff, we will provide you with a referral. We always advise you to contact your personal physician following an emergency department visit to inform them of the circumstance of the visit and for follow-up with them and/or the need for any referrals to a consulting specialist. The emergency department will also refer you to a specialist when appropriate. This referral assures that you have the opportunity for follow-up care with a specialist. All of these measure are taken in an effort to provide you with optimal care, which includes your follow-up. Under all circumstances we always encourage you to contact your private physician who remains a resource for coordinating your care. When calling for follow-up care, please make the office aware that this follow-up is from your recent emergency room visit. If for any reason you are refused follow-up, please contact the [facility] Emergency Department at and asked to speak to the emergency department charge nurse. Please follow up with your primary care physician. If you do not have a primary care physician, see below: [facility] [address] [place] [id number] [address] [id number] Please continue to follow-up with your primary care physician as needed. We did a CT scan and the labs cannot find any definite cause of your pain. Left flank continue to have any symptoms that are concerning please return to the ED. Sepsis Event Note (ED) - Evaluation Sepsis Screening Result: No Definite Risk - Focused Exam Vital Signs: Vital Signs Temp Pulse Resp BP Pulse Ox 11/07/20 06:29 98.1 F 70 18 128/80 97 - Assessment/Plan Plan: Patient is a 45-year-old male presents today for left-sided flank pain. Does not seem to be a kidney stone in nature unclear cause of the pain. Patient had a UA ordered by previous team essentially negative without any bacterial blood. Will obtain basic labs and possible CAT scan and reassess.
[2020-11-07 07:57] LABS: BLOOD UREA NITROGEN,BUN 14 mg/dL (7.0-18.0); CARBON DIOXIDE,CO2 27.8 mmol/L (21.0-32.0); CHLORIDE,CL 105 mmol/L (98-107); GLUCOSE RANDOM 108 mg/dL (74-106); POTASSIUM,K 4.4 mmol/L (3.5-5.1); SODIUM,NA 140 mmol/L (136-148)
--- NOTE | 2020-11-07 09:05 | CT ---
INDICATION: Left flank pain. TECHNIQUE: CT abdomen and pelvis acquired with 100 cc Isovue 370 IV contrast. COMPARISON: None. FINDINGS: Lower chest: Unremarkable. Liver: Few tiny cystic lesions. Otherwise unremarkable. Gallbladder and bile ducts: Unremarkable. No stones or inflammation. No biliary dilatation. Pancreas: Unremarkable. No mass or inflammation. Spleen: Unremarkable. Normal in size. No masses. Adrenal glands: Unremarkable. No nodules. Kidneys: Unremarkable. No masses, stones, or hydronephrosis. GI tract: Unremarkable. Normal in caliber. No sign of mass or inflammation. Vasculature: Unremarkable. Mesenteric arteries are patent. Lymph nodes: No lymphadenopathy. Omentum/Peritoneum/Abdominal Wall: Unremarkable. No sign of mass or infiltration. No free air or significant free fluid. Pelvis: Unremarkable. Bones: Bilateral pars defects at L5 with a grade 2 spondylolisthesis at L5-S1. IMPRESSION: 1. No acute or specific finding to explain left flank pain. Specifically no obstructive renal stones and no hydronephrosis. 2. L5 pars defects with a grade 2 spondylolisthesis at L5-S1. Please note that all CT scans at this facility use dose modulation, iterative reconstruction, and/or weight-based dosing when appropriate to reduce radiation dose to as low as reasonably achievable. Dictated by Tramaine Riggs MD @ Nov 07 2020 8:53AM Signed by Dr. Tramaine Riggs @ Nov 07 2020 9:04AM
[2020-11-07 09:27] VITALS: BP 137/85; PULSE 81
[2020-11-07] MEDS ORDERED: Iopamidol 755 MG/ML 500 ML Multipack Bottle IVPUSH STA (18:37)
== END 2020-11-07 09:28 | disposition home or self-care (01) ==
LOC: MW.ED 06:15
DX: R10.9 Unspecified abdominal pain (principal); M54.9 Dorsalgia, unspecified; R11.2 Nausea with vomiting, unspecified; R31.9 Hematuria, unspecified; E66.9 Obesity, unspecified; Z68.30 Body mass index [BMI] 30.0-30.9, adult; Z91.048 Other nonmedicinal substance allergy status
CPT/HCPCS: 36415; 74177; 80053; 81003; 85025; 99284; Q9967; 99282

== ENCOUNTER 2023-08-17 10:03 | Emergency (ER) | payer BC ==
[2023-08-17 10:33] VITALS: BP 147/88
[2023-08-17 10:39] VITALS: PULSE 80
== END 2023-08-17 10:38 | disposition home or self-care (01) ==
LOC: MW.ED 10:03
DX: K08.89 Other specified disorders of teeth and supporting structures (principal)
CPT/HCPCS: 99282; 99283